=== PATIENT | male | born 1965 | race Native Hawaiian/Other Pacific Islander ===

== ENCOUNTER 2019-07-06 12:20 | Emergency (ER) | payer SELFPAY ==
[~2019-07-06] VITALS: Ht 172.7 cm; Wt 77.1 kg
[2019-07-06] MEDS ORDERED: TDAP DIPH,PERTUSS,TET VAC/PF 0.5 ML DISP.SYRIN IM ONE ×2 (12:30→12:37)
[2019-07-06] MEDS ORDERED: HYDROCODONE/APAP 5-325MG TABLET PO ONE (12:30)
[2019-07-06] MEDS ORDERED: HYDROCODONE/APAP 5-325MG TABLET ONE (12:37)
--- NOTE | 2019-07-06 12:58 | NUR ---
Pt out of ER for CT scan.
--- NOTE | 2019-07-06 13:19 | NUR ---
PT back from CT via gurney, resting in bed w/ both eyes closed.
--- NOTE | 2019-07-06 13:43 | NUR ---
Pt walked to bathroom w/ steady gait.
--- NOTE | 2019-07-06 15:23 | NUR ---
Patient discharged to home in stable condition. Written and verbal after care instructions given. Patient and verbalizes understanding of instructions. Normal steady gait.
[2019-07-06 15:24] VITALS: BP 135/78
== END 2019-07-06 15:27 | disposition home or self-care (01) ==
LOC: ER 12:20
DX: S80.12XA Contusion of left lower leg, initial encounter (principal); S80.11XA Contusion of right lower leg, initial encounter; S40.022A Contusion of left upper arm, initial encounter; S16.1XXA Strain of muscle, fascia and tendon at neck level, initial encounter; S09.90XA Unspecified injury of head, initial encounter; I25.2 Old myocardial infarction; V49.49XA Driver injured in collision with other motor vehicles in traffic accident, initial encounter; Y93.89 Activity, other specified; Y92.410 Unspecified street and highway as the place of occurrence of the external cause; Y99.8 Other external cause status
CPT/HCPCS: 70450; 71045; 72125; 73060; 73590; 90715; A4663